=== PATIENT | female | born 2000 | race Caucasian/White ===

== ENCOUNTER 2023-07-10 16:40 | Emergency (ER) | payer BC, OTHER ==
[~2023-07-10] VITALS: Ht 157.5 cm; Wt 59.0 kg
[2023-07-10 17:24] VITALS: BP_SYST 127; PULSE 72; RESP 15; TEMP 98.4; O2SAT 100
[2023-07-10] MEDS ORDERED: IBUP-1969 PO (21:12)
[2023-07-10 21:27] VITALS: BP_SYST 127; PULSE 72; RESP 15; TEMP 98.4; O2SAT 100
== END 2023-07-10 21:27 | disposition home or self-care (01) ==
LOC: SED 16:40
DX: S00.83XA Contusion of other part of head, initial encounter (principal); R41.82 Altered mental status, unspecified; J45.909 Unspecified asthma, uncomplicated; W22.8XXA Striking against or struck by other objects, initial encounter; Y93.89 Activity, other specified; Y92.89 Other specified places as the place of occurrence of the external cause; Y99.8 Other external cause status
CPT/HCPCS: 70450-TC; 76376; 81025; 99284